=== PATIENT | female | born 1965 | race Caucasian/White ===

== ENCOUNTER 2016-10-23 18:26 | Emergency (ER) | payer OTHER | END 2016-10-23 22:55 | disposition home or self-care (01) | LOC: ER 18:26 | DX: S40.021A Contusion of right upper arm, initial encounter (principal); S60.211A Contusion of right wrist, initial encounter; W19.XXXA Unspecified fall, initial encounter; Y92.019 Unspecified place in single-family (private) house as the place of occurrence of the external cause; I10 Essential (primary) hypertension; E11.9 Type 2 diabetes mellitus without complications; E78.5 Hyperlipidemia, unspecified; Z88.5 Allergy status to narcotic agent; Z91.041 Radiographic dye allergy status | CPT/HCPCS: 73060; 73110; 99070; 99283 ==

== ENCOUNTER 2016-11-27 22:00 | Observation (INO) | payer OTHER ==
[~2016-11-27] VITALS: Ht 157.5 cm; Wt 101.0 kg
[2016-11-27 22:32] LABS: BASO # 0.1 10_X3_uL (0.0-0.1); BASO % 0.5 % (0.1-1.2); EOS # 0.4 10_X3_uL (0.0-0.4); EOS % 2.8 % (0.7-5.8); GRAN # 10.4 10_X3_uL (1.6-6.1); HEMATOCRIT 48.3 % (34-45); HEMOGLOBIN 15.3 g/dL (11.2-15.7); LYMPH # 2.9 10_X3_uL (1.2-3.7); LYMPH % 19.7 % (19.3-51.7); MEAN CORPUSCULAR HGB CONC 31.7 g/dL (32.0-36.0); MEAN CORPUSCULAR VOLUME 85.3 fL (79-95); MEAN PLATELET VOLUME 9.7 fl (7.5-11.5); PLATELET COUNT 308 x10_3/uL (182-369); RED BLOOD COUNT 5.66 x10_6/uL (3.9-5.2); RED CELL DISTRIBUTION WIDTH 15.6 % (11.7-14.4); WHITE BLOOD COUNT 14.8 x10_3/uL (4.0-10.0)
[2016-11-27 22:44] LABS: PROTHROMBIN TIME (PATIENT) 10.1 SECONDS (9.9-11.1)
[2016-11-27 22:49] LABS: ALBUMIN 3.9 gm/dL (3.4-5.0); ALKALINE PHOSPHATASE 102 U/L (50-136); ALT/SGPT 26 U/L (3.5-33.9); AST/SGOT 26 U/L (7.04-26.96); BILIRUBIN,TOTAL 0.19 mg/dL (0.0-1.0); BLOOD UREA NITROGEN 8 mg/dL (7-18); CALCIUM 9.1 mg/dL (8.7-10.7); CARBON DIOXIDE 29 mmol/L (21-32); CREATINE KINASE 53 U/L (21-215); CREATININE 0.7 mg/dL (0.6-1.3); GLUCOSE,RANDOM 134 mg/dL (70-99); SODIUM 138 mmol/L (136-145); TOTAL PROTEIN 7.1 gm/dL (6.4-8.2)
[2016-11-28 03:59] LABS: CKMB < 1.0 ng/ml (0.0-5.0); TROP-I < 0.30 NG/ML (0.00-0.30)
[2016-11-28 10:31] LABS: CKMB 1.3 ng/ml (0.0-5.0)
[2016-11-28 10:33] LABS: TROP-I < 0.30 NG/ML (0.00-0.30)
[2016-11-28 16:30] LABS: CKMB 1.5 ng/ml (0.0-5.0)
[2016-11-28 16:31] LABS: TROP-I < 0.30 NG/ML (0.00-0.30)
== END 2016-11-29 10:39 | disposition home or self-care (01) ==
LOC: ER 22:00 → MS 11-28 02:05
PROVIDERS: Emergency Medicine; ADMIT Family Medicine
DX: R07.89 Other chest pain (principal); E11.9 Type 2 diabetes mellitus without complications; E78.5 Hyperlipidemia, unspecified; I10 Essential (primary) hypertension; J44.9 Chronic obstructive pulmonary disease, unspecified; F41.9 Anxiety disorder, unspecified; F17.210 Nicotine dependence, cigarettes, uncomplicated; I25.2 Old myocardial infarction; Z95.5 Presence of coronary angioplasty implant and graft; Z79.899 Other long term (current) drug therapy; Z88.5 Allergy status to narcotic agent; Z93.0 Tracheostomy status
CPT/HCPCS: 36415; 71010; 80053; 80061; 82550; 82553; 82962; 83036; 85025; 85610; 85730; 93005; 93041; 96361; 96374; 96376; 99070; 99285-25; G0378; J8597